=== PATIENT | male | born 1970 | race Caucasian/White ===

== ENCOUNTER 2019-05-11 22:02 | Emergency (ER) | payer BC ==
[~2019-05-11] VITALS: Ht 190.5 cm; Wt 97.5 kg
[2019-05-12] MEDS ORDERED: Augmentin 875-1 EACH PO (00:18)
== END 2019-05-12 00:45 | disposition home or self-care (01) ==
LOC: ER 22:02
DX: S68.127A Partial traumatic metacarpophalangeal amputation of left little finger, initial encounter (principal); W26.9XXA Contact with unspecified sharp object(s), initial encounter
CPT/HCPCS: 12001; 90471; 90714; 99282-25; A9270